=== PATIENT | female | born 1990 | race American Indian/Alaskan Native ===

== ENCOUNTER 2017-03-06 10:12 | Emergency (ER) | payer SELFPAY ==
--- NOTE | 2017-03-06 10:45 | Emergency Department Report ---
Entered by MIKEY LANDON, acting as scribe for ADORE LOPEZ NP. Chief Complaint: Abdominal Pain Stated Complaint: ABD PAIN Time Seen by Provider: 03/06/17 10:39 - HPI History of Present Illness: 26 y/o presents with abd pain that started 2 days ago. Pt denies n/v. She notes that she is currently on her menstrual cycle. - ROS Review of Systems: +abd pain +dark vaginal d/c started prior to menstrual cycle -n/v - Exam Vital Signs: Vital Signs 03/06/17 10:41 Temperature 98.4 F Pulse Rate 108 H Respiratory 22 Rate Blood Pressure 131/107 O2 Sat by Pulse 98 Oximetry Physical Exam: abd: left sided suprapubic TTP, no rebound no guarding a and o x4 steady gait MSE screening note: Focused history and physical exam performed. Due to findings the following was ordered: labs ED Disposition for MSE Condition: Stable This documentation as recorded by the scribe,MIKEY LANDON,accurately reflects the service I personally performed and the decisions made by JOHN macias TRACY M, NP.
[2017-03-06 11:14] LABS: Basophils % (Auto) 0.6 % (0.0-1.8); Eosinophils % (Auto) 0.3 % (0.0-4.3); Hemoglobin 14.1 gm/dl (10.1-14.3); Mean Corpuscular HGB Conc 33 % (30-34); Mean Corpuscular Hemoglobin 27 pg (28-32); Mean Corpuscular Volume 83 fl (79-97); Platelet Count 429 K/mm3 (140-440); Red Blood Count 5.18 M/mm3 (3.65-5.03); Red Cell Distribution Width 14.3 % (13.2-15.2); White Blood Count 13.2 K/mm3 (4.5-11.0)
[2017-03-06 11:41] LABS: Alanine Aminotransferase 20 units/L (7-56); Alkaline Phosphatase 88 units/L (35-129); Anion Gap 20 mmol/L; Blood Urea Nitrogen 13 mg/dL (7-17); Calcium 9.5 mg/dL (8.4-10.2); Carbon Dioxide 25 mmol/L (22-30); Chloride 98.1 mmol/L (98-107); Glucose 89 mg/dL (65-100); Lipase 16 units/L (13-60); Sodium 139 mmol/L (137-145); Total Protein 8.2 g/dL (6.3-8.2)
[2017-03-06 11:52] LABS: Bacteria,Urine 1+ /HPF (Negative); Bilirubin,Urine NEG (Negative); Blood,Urine LG (Negative); Ketones,Urine NEG (Negative); Leukocyte Esterase,Urine NEG (Negative); Mucus,Urine FEW /HPF; Nitrite,Urine NEG (Negative); Protein,Urine <15 mg/dL mg/dL (Negative); Urobilinogen,Urine < 2.0 mg/dL (<2.0)
[2017-03-06] MEDS ORDERED: DILAUDID IV ONE (13:54)
[2017-03-06] MEDS ORDERED: ZOFRAN IV ONE (13:54)
[2017-03-06] MEDS ORDERED: NACL 0.9% 1000 ML 1,000 ML IV ONE (13:54)
[2017-03-06] MEDS ORDERED: TORADOL IV ONE ×2 (13:54→18:21)
--- NOTE | 2017-03-06 13:58 | Emergency Department Report ---
ED Abdominal Pain HPI - General Chief Complaint: Abdominal Pain Stated Complaint: ABD PAIN Time Seen by Provider: 03/06/17 10:39 Source: patient Mode of arrival: Ambulatory Limitations: No Limitations - History of Present Illness MD Complaint: abdominal pain -: Gradual Location: LLQ, RLQ Radiation: none Migration to: no migration Severity: moderate Severity scale (0 -10): 10 Quality: cramping, stabbing, aching Consistency: constant Improves With: nothing Worsens With: nothing Associated Symptoms: denies other symptoms, fever. denies: nausea, vomiting, diarrhea, chills, constipation, dysuria, hematemesis, hematochezia - Related Data Allergies Allergy/AdvReac Type Severity Reaction Status Date / Time No Known Allergies Allergy Verified 03/06/17 10:43 ED Review of Systems ROS: Stated complaint: ABD PAIN Other details as noted in HPI Comment: All other systems reviewed and negative ED Past Medical Hx - Past Medical History Previous Medical History?: No - Surgical History Past Surgical History?: No - Social History Smoking Status: Never Smoker Substance Use Type: None ED Physical Exam - General Limitations: No Limitations General appearance: alert, in no apparent distress - Head Head exam: Present: atraumatic, normocephalic - Eye Eye exam: Present: normal appearance - ENT ENT exam: Present: mucous membranes moist - Neck Neck exam: Present: normal inspection - Respiratory Respiratory exam: Present: normal lung sounds bilaterally. Absent: respiratory distress - Cardiovascular Cardiovascular Exam: Present: regular rate, normal rhythm. Absent: systolic murmur, diastolic murmur, rubs, gallop - GI/Abdominal GI/Abdominal exam: Present: soft, normal bowel sounds - Extremities Exam Extremities exam: Present: normal inspection - Back Exam Back exam: Present: normal inspection - Neurological Exam Neurological exam: Present: alert, oriented X3 - Psychiatric Psychiatric exam: Present: normal affect, normal mood - Skin Skin exam: Present: warm, dry, intact, normal color. Absent: rash ED Course Vital Signs 03/06/17 03/06/17 03/06/17 10:41 13:25 13:35 Temperature 98.4 F Pulse Rate 108 H 67 Respiratory 22 22 Rate Blood Pressure 131/107 Blood Pressure 138/88 [Right] O2 Sat by Pulse 98 99 100 Oximetry 03/06/17 03/06/17 03/06/17 13:45 13:52 13:54 Temperature 99.1 F Pulse Rate Respiratory 18 Rate Blood Pressure Blood Pressure [Right] O2 Sat by Pulse 100 99 Oximetry 03/06/17 03/06/17 03/06/17 14:01 14:16 14:17 Temperature Pulse Rate Respiratory 22 22 Rate Blood Pressure Blood Pressure [Right] O2 Sat by Pulse 100 Oximetry 03/06/17 03/06/17 03/06/17 14:29 14:30 14:45 Temperature Pulse Rate Respiratory Rate Blood Pressure 137/81 128/75 131/84 Blood Pressure [Right] O2 Sat by Pulse 100 99 52 L Oximetry 03/06/17 03/06/17 03/06/17 15:01 15:15 15:30 Temperature Pulse Rate Respiratory Rate Blood Pressure 131/84 137/63 130/83 Blood Pressure [Right] O2 Sat by Pulse 100 92 100 Oximetry 03/06/17 03/06/17 03/06/17 15:45 16:00 16:15 Temperature Pulse Rate Respiratory Rate Blood Pressure 127/75 135/74 124/78 Blood Pressure [Right] O2 Sat by Pulse 100 100 99 Oximetry 03/06/17 16:30 Temperature Pulse Rate Respiratory Rate Blood Pressure 136/83 Blood Pressure [Right] O2 Sat by Pulse 100 Oximetry ED Medical Decision Making - Lab Data Result diagrams: 03/06/17 10:47 03/06/17 10:47 - EKG Data Interpretation: no acute changes Critical care attestation.: If time is entered above; I have spent that time in minutes in the direct care of this critically ill patient, excluding procedure time. ED Disposition Clinical Impression: Abdominal pain Disposition: DC-01 TO HOME OR SELFCARE Is pt being admited?: No Does the pt Need Aspirin: No Condition: Good Instructions: Abdominal Pain (ED) Referrals: PRIMARY CARE, [Primary Care Provider] - 3-5 Days Time of Disposition: 20:33
--- NOTE | 2017-03-06 16:03 | Cat Scan Report ---
CT of the abdomen and pelvis with IV contrast. History: Abdominal pain. Findings: The liver, spleen, pancreas, and kidneys appear normal. The gallbladder and adrenal glands are unremarkable. There is a large round low-density mass in the uterine fundus which measures 9 x [address] numbers measure 40-50 Hounsfield units. There is a soft tissue mass in the right lower pelvis which appears to be contiguous with the uterus, although this could represent an ovarian mass. This measures approximately 4.8 cm in diameter. There is a small volume of free fluid in the cul-de-sac. The appendix is normal. Impression: 1. 9 x 8 cm hypodense mass in the uterine fundus. This is not cystic based on the CT numbers described above. This could represent hemorrhage or necrotic tumor. 2. Right adnexal versus right lower uterine mass. Free fluid is noted in the cul-de-sac. To further clarify the pelvic anatomy, pelvic ultrasound is recommended.
[2017-03-06 16:37] VITALS: BP 136/83
--- NOTE | 2017-03-06 17:54 | Ultrasound Report ---
FINAL REPORT EXAM: US TRANSVAGINAL HISTORY: abdominal pain TECHNIQUE: Ultrasound pelvis transvaginal with color Doppler evaluation PRIORS: None. FINDINGS: The uterus measures 16.6 x 8.7 x 7.6 centimeters There is a large subserosal fibroid posterior uterus measuring 8.2 x 7.7 x 7.9 centimeters. At the posterior lower uterine segment there is a 5.0 x 3.6 x 6.1 centimeters Endometrial thickness is 5.0 centimeters The right ovary is 3.6 x 1.3 x 3.8 centimeters. No abnormal mass or cyst. There is normal flow on color Doppler evaluation. The left ovary is not identified sonographically. May be shadowed by overlying bowel gas. IMPRESSION: Enlarged multi fibroid uterus Normal appearance of the right ovary Left ovary not identified sonographically
--- NOTE | 2017-03-06 17:57 | Ultrasound Report ---
FINAL REPORT EXAM: US PELVIC COMPLETE HISTORY: abdominal pain TECHNIQUE: PRIORS: None. FINDINGS: The uterus measures 16.6 x 8.7 x 7.6 centimeters There is a large subserosal fibroid posterior uterus measuring 8.2 x 7.7 x 7.9 centimeters. At the posterior lower uterine segment there is a 5.0 x 3.6 x 6.1 centimeters Endometrial thickness is 5.0 centimeters The right ovary is 3.6 x 1.3 x 3.8 centimeters. No abnormal mass or cyst. There is normal flow on color Doppler evaluation. The left ovary is not identified sonographically. May be shadowed by overlying bowel gas. IMPRESSION: Enlarged multi fibroid uterus Normal appearance of the right ovary Left ovary not identified sonographically
== END 2017-03-06 19:49 | disposition home or self-care (01) ==
LOC: ED 10:12
DX: R10.9 Unspecified abdominal pain (principal)
CPT/HCPCS: 36415; 74177; 76830; 76856; 80053; 81001; 83690; 84703; 85025; 96361; 96374; 96375; 96376; 99284; J1170; J1885; J2405; J7030; Q9967